=== PATIENT | female | born 1990 | race Caucasian/White ===

== ENCOUNTER 2017-05-04 17:43 | Emergency (ER) | payer MEDICAID ==
[2017-05-04] MEDS ORDERED: Maalox 30 mL Cup PO ONE (18:57)
--- NOTE | 2017-05-04 19:04 | ED Physician Chart ---
ED Chief Complaint/HPI - Patient Information Date Seen:: 05/04/17 Time Seen:: 18:50 Chief Complaint:: epigastric pain History of Present Illness:: Patient developed epigastric pain yesterday. She had 5-6 times diarrhea. No vomiting. Allergies:: Allergies Allergy/AdvReac Type Severity Reaction Status Date / Time No Known Allergies Allergy Verified 05/04/17 18:19 Vitals:: Vital Signs - 8 hr 05/04/17 18:19 Temp 98.7 F HR 95 RR 16 BP 119/79 O2 Sat % 98 Historian:: Patient Review:: Nurse's Note Reviewed ED Review of Systems - Review of Systems General/Constitutional: No fever, No chills Skin: No skin lesions Head: No headache Eyes: No loss of vision ENT: No earache Neck: No neck pain, No swelling Cardio Vascular: No chest pain Pulmonary: No SOB, No cough GI: No nausea, No vomiting, Diarrhea G/U: No dysuria Musculoskeletal: No bone or joint pain Endocrine: No polyuria, No polydipsia Psychiatric: No prior psych history, No depression, No anxiety Hematopoietic: No bruising Allergic/Immuno: No urticaria ED Past Medical History - Past Medical History Past Medical History: No significant medical hx Family History: None Social History: Non Smoker, No Alcohol Surgical History: None Psychiatricy History: None Medication: None Family Medical History - Family Member Mother Ethnicity: ED Physical Exam - Physical Examination General/Constitutional: Well-developed, well-nourished, Alert, No distress Head: Atraumatic Eyes: Lids, conjuctiva normal, PERRL Skin: Nl inspection, No rash, No skin lesions, No ecchymosis ENMT: External ears, nose nl, TM canals nl, Nasal exam nl, Lips, teeth, gums nl , Oropharynx nl, Tonsils nl Neck: No nuchal rigidity Respiratory: Nl effort/Exclusion, Clear to Auscultation Cardio Vascular: RRR GI: No organomegaly, No hernia, Normal BS's Other GI comments:: Epigastric tenderness : No CVA tenderness Extremities: No tenderness or effusion Neuro/Psych: No focal deficits Misc: No paraspinal tenderness ED Assessment - Assessment General Assessment: Patient felt much better after the Maalox. ED Septic Shock - . Is Septic Shock (SBP<90, OR Lactate>4 mmol\L) present?: No - <6hrs of presentation: Vital Signs: Vital Signs - 8 hr 05/04/ 18:19 Temp 98.7 F HR 95 RR 16 BP 119/79 O2 Sat % 98 ED Reassessment (Disposition) - Reassessment Reassessment Condition:: Improved - Diagnosis Diagnosis:: Viral enteritis diarrhea - Aftercare/Follow up Instructions Aftercare/Follow-Up Instructions:: Refer to Discharge Instructions - Patient Disposition Discharge/Transfer:: Home Condition at Disposition:: Stable, Improved
[2017-05-04] MEDS ORDERED: Maalox 30 mL Cup ONE (19:05)
== END 2017-05-04 20:15 | disposition home or self-care (01) ==
LOC: ER 17:43
DX: A08.4 Viral intestinal infection, unspecified (principal)